=== PATIENT | female | born 1960 | race Caucasian/White ===

== ENCOUNTER 2017-12-16 05:50 | Day surgery (SDC) | payer OTHER ==
[~2017-12-16 05:50] MED LIST: CARAFATE1 G PO; LIPITOR20 MG PO; PERCOCET 5/3251 TAB PO; PRINIVIL5 MG PO; ULTRAM PO; [UNRECOGNIZED DRUG - OTHER] PO
[2017-12-16] MEDS ORDERED: PERCOCET 5-3251 EACH PO (08:22)
== END 2017-12-16 11:35 | disposition home or self-care (01) ==
LOC: CIR.AMB 05:50
DX: M23.322 Other meniscus derangements, posterior horn of medial meniscus, left knee (principal); M17.12 Unilateral primary osteoarthritis, left knee; M94.262 Chondromalacia, left knee; M65.862 Other synovitis and tenosynovitis, left lower leg